=== PATIENT | male | born 1960 | race Caucasian/White ===

== ENCOUNTER 2017-09-01 21:44 | Emergency (ER) | payer OTHER ==
[~2017-09-01] VITALS: Ht 182.9 cm; Wt 133.1 kg
[2017-09-01 21:48] VITALS: BP 149/83; PULSE 124; RESP 18; TEMP 98.9
[2017-09-01] MEDS ORDERED: SYNT25TA PO (22:14)
--- NOTE | 2017-09-01 22:25 | PD ---
HPI Chief Complaint: Cold / Flu Symptoms Time Seen by Provider: 22:12 Travel History International Travel<30 days: No Contact w/Intl Traveler<30days: No Traveled to known affect area: No History of Present Illness HPI The patient is a 57-year-old male that complains of burning throat and persistent cough for 2 days. He denies any chest pain. He denies any fever or myalgias. PFSH Past Medical History Diminished Hearing: No Herniated Disk: Yes Musculoskeletal: Yes (chronic back pain) Thyroid Disease: Yes Tetanus Vaccination: Unknown Influenza Vaccination: Yes Past Surgical History Cholecystectomy: Yes Social History Alcohol Use: No Tobacco Use: No Substance Use: No Allergies-Medications (Allergen,Severity, Reaction): Coded Allergies: No Known Allergies (Unverified , 09/01/17) Reported Meds & Prescriptions Reported Meds & Active Scripts Active Reported Synthroid (Levothyroxine Sodium) 25 Mcg Tab 25 Mcg PO DAILY Review of Systems Except as stated in HPI: all other systems reviewed are Neg Physical Exam Narrative GENERAL: Well-nourished, well-developed patient. SKIN: Focused skin assessment warm/dry. HEAD: Normocephalic. EYES: No scleral icterus. No injection or drainage. NECK: Supple, trachea midline. No JVD or lymphadenopathy. CARDIOVASCULAR: Regular rate and rhythm without murmurs, gallops, or rubs. RESPIRATORY: Breath sounds equal bilaterally. No accessory muscle use. Lungs clear to auscultation bilaterally. GASTROINTESTINAL: Abdomen soft, non-tender, nondistended. MUSCULOSKELETAL: No cyanosis, or edema. BACK: Nontender without obvious deformity. No CVA tenderness. ENT: The throat is red without exudate or abscess. Data Data Last Documented VS Vital Signs Date Time Temp Pulse Resp B/P (MAP) Pulse Ox O2 Delivery O2 Flow Rate FiO2 09/01/17 22:15 18 97 Room Air 09/01/17 21:48 98.9 124 149/83 (105) Orders Orders Group A Rapid Strep Screen (09/01/17 22:23) Guaifen-Cod 200-20 Mg/10ml Liq (Robituss (09/01/17 22:30) Strep Culture (Group A) (09/01/17 22:20) MDM Medical Decision Making Medical Screen Exam Complete: Yes Emergency Medical Condition: Yes Medical Record Reviewed: Yes Interpretation(s) The strep screen is negative for group A strep. Differential Diagnosis Viral upper respiratory infection, strep pharyngitis, viral pharyngitis, flu syndrome Narrative Course The patient has no myalgias or fever. This suggests against flu syndrome. Also , he has had the symptoms over 2 days and Tamiflu would not be applicable and him. The patient's main symptoms are his sore throat and persistent cough. The lungs are clear. The strep screen is also negative. Impression: Viral upper respiratory infection Plan: The patient be given codeine containing cough syrup, he get good response to the codeine containing cough syrup here. Diagnosis Primary Impression: Viral upper respiratory infection Additional Instructions: Rest, drink plenty of liquids and do not drink alcohol or drive on the codeine containing cough syrup. Follow-up your primary care physician this week or next week. Med/Other Pt SpecificInfo: Prescription(s) given Scripts Guaifenesin-Codeine Liq (Guaiatussin AC Liq) 100-10 Mg/5 Ml Syrp 10 ML PO Q6H Y for cough, #180 ML Prov: Diego Fitzpatrick MD 09/01/17 Disposition: 01 DISCHARGE HOME Condition: Stable Diego Fitzpatrick MD Sep 01, 2017 22:25
[2017-09-01] MEDS ORDERED: guaiFENesin/CODEINE SYRUP 200 MG/20 MG/10 ML CUP PO ONE (22:30)
[2017-09-01] MEDS ORDERED: GUAISYP5 PO (23:07)
[2017-09-01 23:16] VITALS: BP 136/76
== END 2017-09-01 23:17 | disposition home or self-care (01) ==
LOC: PHED 21:44
DX: J06.9 Acute upper respiratory infection, unspecified (principal)
CPT/HCPCS: 87081; 87880; 99283